=== PATIENT | male | born 1980 | race Caucasian/White ===

== ENCOUNTER 2021-09-07 16:05 | Inpatient (IN) | payer MEDICAID, OTHER ==
[~2021-09-07] VITALS: Ht 167.6 cm; Wt 71.2 kg
[2021-09-07] MEDS ORDERED: HALOPERIDOL LACTATE 5 MG/ML VIAL IM ONE (17:30)
[2021-09-07] MEDS ORDERED: LORazepam 2 MG/ML VIAL IM ONE (17:30)
[2021-09-07 17:42] LABS: BASOPHILS % (AUTO) 0.6 % (0.0-2.0); EOSINOPHILS % (AUTO) 2.7 % (1.0-6.0); HEMATOCRIT 36.2 % (41-53); HEMOGLOBIN 12.3 g/dL (13.5-17.5); LYMPHOCYTES # (AUTO) 2.3 K/uL (1.0-4.8); LYMPHOCYTES % (AUTO) 26.5 % (22.0-44.0); MEAN CORPUSCULAR HEMOGLOBIN 29.9 pg (26.0-34.0); MEAN CORPUSCULAR HGB CONC 34.1 G/dL (31.0-37.0); MEAN CORPUSCULAR VOLUME 88 fL (80-100); MONOCYTES # (AUTO) 0.7 K/uL (0.1-1.0); MONOCYTES % (AUTO) 8.5 % (2.0-9.0); NEUTROPHILS # (AUTO) 5.3 K/uL (1.8-7.7); NEUTROPHILS % (AUTO) 61.7 % (40.0-70.0); PLATELET COUNT (AUTO) 400 K/uL (150-450); RED BLOOD CELL COUNT(AUTO) 4.12 MIL/uL (4.50-5.90); RED CELL DISTRIBUTION WIDTH 13.4 % (11.5-14.5)
[2021-09-07 17:51] LABS: ANION GAP 8 mmol/L (8-16); CALCIUM, TOTAL 8.8 mg/dL (8.8-10.5); CARBON DIOXIDE 28 mmol/L (22-29); CHLORIDE 105 mmol/L (98-107); CREATININE 0.92 mg/dL (0.60-1.30); GLUCOSE,RANDOM 86 mg/dL (70-110); POTASSIUM 3.5 mmol/L (3.5-5.1); SODIUM SERUM 141 mmol/L (136-145); UREA NITROGEN, BLOOD 12 mg/dL (7-18)
[2021-09-07 17:52] LABS: GLOMERULAR FILTR. RATE CALC > 60 mL/min (>60)
[2021-09-07 17:57] LABS: ALANINE AMINOTRANSFERASE 24 U/L (12-78); ALBUMIN 3.6 g/dL (3.4-5.0); ALKALINE PHOSPHATASE 64 U/L (46-116); ASPARTATE AMINOTRANSFERASE 18 U/L (15-37); BILIRUBIN,TOTAL 0.5 mg/dL (0.1-1.0); TOTAL PROTEIN, SERUM 7.2 g/dL (6.4-8.2)
[2021-09-08] MEDS ORDERED: ZOLPIDEM TARTRATE 10 MG TABLET PO PRN (12:00)
[2021-09-08 12:09] LABS: COVID AG,FIA SOURCE NASOPHARYNGEAL
[2021-09-08 15:46] LABS: APPEARANCE,URINE CLEAR (CLEAR); BILIRUBIN,URINE NEGATIVE (NEGATIVE); GLUCOSE, URINE (UA) NEGATIVE (NEGATIVE); KETONES,URINE NEGATIVE (NEGATIVE); LEUKOCYTE ESTERASE ,URINE NEGATIVE (NEGATIVE); NITRATE,URINE NEGATIVE (NEGATIVE); OCCULT BLOOD,URINE NEGATIVE (NEGATIVE); PROTEIN,URINE TRACE mg/dL (NEGATIVE); SPECIFIC GRAVITIY, URINE 1.026 (1.003-1.030); UROBILINOGEN,URINE <=1.0 mg/dL (<=1.0)
[2021-09-08] MEDS: HALOPERIDOL 5 MG TABLET PO PRN (20:57)
[2021-09-08] MEDS: LORazepam 2 MG TABLET PO PRN (20:57)
[2021-09-08 21:23] VITALS: BP 130/85
[2021-09-08] MEDS ORDERED: NICOTINE 14 MG/24 HOUR PATCH TD PRN (22:00)
[2021-09-08 23:06] LABS: AMPHET/METH SCREEN,URINE POSITIVE (NEGATIVE); BARBITURATE SCREEN, URINE NEGATIVE (NEGATIVE); BENZODIAZEPINES SCREEN,URINE NEGATIVE (NEGATIVE); CANNABINOID SCREEN,URINE NEGATIVE (NEGATIVE); COCAINE SCREEN,URINE NEGATIVE (NEGATIVE); METHADONE SCREEN, URINE NEGATIVE (NEGATIVE); OPIATE SCREEN,URINE NEGATIVE (NEGATIVE); PHENCYCLIDINE SCREEN,URINE NEGATIVE (NEGATIVE)
[2021-09-09 08:40] VITALS: BP 120/72
[2021-09-09] MEDS: OLANZapine 5 MG TABLET PO SCH ×2 (16:06→16:50)
[2021-09-09] MEDS: BENZTROPINE MESYLATE 1 MG TABLET PO SCH (19:44)
[2021-09-10] MEDS: BENZTROPINE MESYLATE 1 MG TABLET PO SCH ×2 (07:57→16:48)
[2021-09-10] MEDS: HALOPERIDOL 5 MG TABLET PO PRN ×2 (07:57→15:45)
[2021-09-10] MEDS: LORazepam 2 MG TABLET PO PRN ×2 (07:57→15:45)
[2021-09-10] MEDS: OLANZapine 5 MG TABLET PO SCH ×2 (07:57→16:48)
[2021-09-10 08:07] VITALS: BP 130/84
[2021-09-10 16:35] VITALS: BP 127/81
[2021-09-11 09:12] VITALS: BP 114/60
[2021-09-11] MEDS: LORazepam 2 MG TABLET PO PRN ×2 (09:36→16:50)
[2021-09-11] MEDS: OLANZapine 5 MG TABLET PO SCH ×2 (09:36→16:50)
[2021-09-11] MEDS: BENZTROPINE MESYLATE 1 MG TABLET PO SCH ×2 (09:36→16:50)
[2021-09-11] MEDS: HALOPERIDOL 5 MG TABLET PO PRN ×2 (09:36→16:50)
[2021-09-11 16:32] VITALS: BP 109/72
[2021-09-12] MEDS: BENZTROPINE MESYLATE 1 MG TABLET PO SCH ×2 (10:37→16:11)
[2021-09-12] MEDS: OLANZapine 5 MG TABLET PO SCH (10:37)
[2021-09-12 11:04] VITALS: BP 115/66
[2021-09-12 13:37] VITALS: BP 115/66
[2021-09-12] MEDS: ARIPiprazole 5 MG TABLET PO SCH (16:11)
[2021-09-12 16:18] VITALS: BP 105/60
[2021-09-13] MEDS: ARIPiprazole 5 MG TABLET PO SCH (07:29)
[2021-09-13] MEDS: LORazepam 2 MG TABLET PO PRN (07:29)
[2021-09-13] MEDS: BENZTROPINE MESYLATE 1 MG TABLET PO SCH (07:29)
[2021-09-13 08:35] VITALS: BP 119/67
[2021-09-13] MEDS ORDERED: ARIP5TAB37 PO (11:55)
[2021-09-13] MEDS ORDERED: BENZ1TAB96 PO (11:55)
== END 2021-09-13 14:00 | disposition home or self-care (01) | DRG 751 ==
LOC: EDBD 16:05 → EMS 16:05 → 3EC 09-08 20:09 → EMS 09-08 21:00
PROVIDERS: ADMIT Psychiatry & Neurology Child & Adolescent Psychiatry; ATTEND Psychiatry & Neurology Child & Adolescent Psychiatry
DX: F29 Unspecified psychosis not due to a substance or known physiological condition (principal); G93.40 Encephalopathy, unspecified; D64.9 Anemia, unspecified; F15.10 Other stimulant abuse, uncomplicated; Z20.822 Contact with and (suspected) exposure to COVID-19; R10.13 Epigastric pain; Z91.19 Patient's noncompliance with other medical treatment and regimen; Z59.00 Homelessness unspecified
CPT/HCPCS: 70450; 80053; 80307; 81003; 84443; 85025; 99285; G0480; J1630; J2060